=== PATIENT | female | born 1970 | race Two or more races ===

== ENCOUNTER → 2024-12-23 | Outpatient (CLI) | payer OTHER, MEDICAID, SELFPAY ==
--- NOTE | 2024-12-23 09:00 | XR_ITS ---
EXAMINATION: Esophagram standard Fluoroscopy 10 spot fluoroscopic films of the esophagus Date and time: December 23, 2024, 0723 hours INDICATIONS: Difficulty swallowing months TECHNIQUE AND FINDINGS: Patient swallowed thin barium with 10 spot fluoroscopic films of the esophagus Fluoroscopy 0.2-minute radiation dose 6.6 mGy Primary peristaltic esophageal waves Mild intermittent gastroesophageal reflux. No stricture at the gastroesophageal junction. No esophageal ulcerations No constricting esophageal lesion IMPRESSION: Mild intermittent gastroesophageal reflux No stricture at the gastroesophageal junction
== END | disposition home or self-care (01) ==
PROVIDERS: PCP Family Medicine; Referring Provider Family Medicine; Visit Provider Family Medicine
DX: K21.9 Gastro-esophageal reflux disease without esophagitis (principal)
CPT/HCPCS: 74220; A4649